=== PATIENT | female | born 1955 | race Caucasian/White ===

== ENCOUNTER → 2018-06-12 | Outpatient (CLI) | payer OTHER ==
[~2018-06-12] MED LIST: AMBIEN 5 MG TABL5 M1 PO; MOBIC7.5 MG PO; ZOLOFT50 MG PO
== END ==
LOC: CAT 14:44
DX: Z13.6 Encounter for screening for cardiovascular disorders (principal); E78.00 Pure hypercholesterolemia, unspecified